=== PATIENT | male | born 1950 | race Hispanic/Latino ===

== ENCOUNTER 2017-04-30 07:43 | Outpatient (CLI) | payer MEDICARE ==
[2017-04-30] MEDS ORDERED: PROVENTIL IH ONE (09:01)
[2017-04-30 09:29] LABS: ISTAT Base Excess -5; ISTAT HCO3 18.2; ISTAT PCO2 23.3 (35-45); ISTAT PO2 78 (80-105); ISTAT SO2 97; ISTAT TCO2 19
[2017-04-30 10:14] LABS: Hematocrit 37.2 % (35.5-45.6); Hemoglobin 12.9 gm/dl (11.8-15.2); Mean Corpuscular HGB Conc 35 % (32-34); Mean Corpuscular Hemoglobin 33 pg (28-32); Mean Corpuscular Volume 95 fl (84-94); Platelet Count 252 K/mm3 (140-440); Red Blood Count 3.91 M/mm3 (3.65-5.03); Red Cell Distribution Width 14.2 % (13.2-15.2); White Blood Count 6.3 K/mm3 (4.5-11.0)
[2017-04-30 10:20] LABS: Alanine Aminotransferase 18 units/L (7-56); Albumin 3.7 g/dL (3.9-5); Albumin/Globulin Ratio 1.2 %; Alkaline Phosphatase 67 units/L (35-129); Anion Gap 22 mmol/L; BUN/Creatinine Ratio 9; Blood Urea Nitrogen 9 mg/dL (9-20); Carbon Dioxide 21 mmol/L (22-30); Chloride 102.6 mmol/L (98-107); Cholesterol 161 mg/dL (50-199); Glucose 87 mg/dL (75-100); HDL Cholesterol 48 mg/dL (40-59); LDL Cholesterol,Direct 98 mg/dL (50-130); Potassium 3.3 mmol/L (3.6-5.0); Sodium 142 mmol/L (137-145); Total Protein 6.9 g/dL (6.3-8.2)
--- NOTE | 2017-04-30 10:45 | XRay Report ---
CHEST 2 VIEWS INDICATION: COPD. COMPARISON: None similar at this institution. FINDINGS: PA and lateral chest radiographs demonstrate normal cardiomediastinal silhouette. Clear, slightly hyperexpanded lungs. Intact bones. CONCLUSION: No acute disease in the chest. Thank you for the opportunity to participate in this patient's care.
[2017-04-30 16:57] LABS: Triglycerides 85 mg/dL (2-149)
== END 2017-04-30 07:44 | disposition home or self-care (01) ==
LOC: PF 07:43
PROVIDERS: ATTEND Internal Medicine
DX: J44.9 Chronic obstructive pulmonary disease, unspecified (principal); R79.89 Other specified abnormal findings of blood chemistry
CPT/HCPCS: 36415; 71020; 80053; 80061; 82785; 82803; 84436; 84443; 85027; 94060; 94640; 94726; 94729

== ENCOUNTER 2017-05-18 09:20 | Outpatient (CLI) | payer MEDICARE ==
[2017-05-18 10:11] LABS: Anion Gap 17 mmol/L; BUN/Creatinine Ratio 14; Blood Urea Nitrogen 13 mg/dL (9-20); Calcium 8.8 mg/dL (8.4-10.2); Carbon Dioxide 24 mmol/L (22-30); Chloride 106.8 mmol/L (98-107); Glucose 97 mg/dL (75-100); Potassium 3.6 mmol/L (3.6-5.0); Sodium 144 mmol/L (137-145)
--- NOTE | 2017-05-18 11:16 | Cat Scan Report ---
CTA CHEST: HISTORY: Shortness of breath. COMPARISON: none. TECHNIQUE: Helical CT in 1.25mm intervals following IV contrast. Pulmonary embolus protocol. Sagittal and coronal reformatted images. Rotational MIP images. FINDINGS: Contrast bolus is satisfactory. No pulmonary embolus is identified. Resolution in the distal, small pulmonary arteries is limited. Thyroid gland: Normal. Tracheobronchial tree: Normal. Esophagus: Normal. Heart: Normal. Pericardium: Normal. Mediastinum: Normal. Lung Benitez: normal. Pleural Spaces: Normal. Musculoskeletal: Normal. IMPRESSION: No evidence for pulmonary embolus. Unremarkable CT chest with contrast.
== END 2017-05-18 09:21 | disposition home or self-care (01) ==
LOC: CT 09:20
PROVIDERS: ATTEND Internal Medicine
DX: R06.02 Shortness of breath (principal); R09.89 Other specified symptoms and signs involving the circulatory and respiratory systems; R05 Cough
CPT/HCPCS: 36415; 71275; 80048; Q9967

== ENCOUNTER 2017-05-21 08:09 | Outpatient (CLI) | payer MEDICARE ==
--- NOTE | 2017-05-22 11:10 | Vascular Lab Report ---
LOWER EXTREMITY VENOUS DUPLEX: REASON FOR EXAM: Edema of the lower extremities. COMMENTS ON THE RIGHT: All veins visualized are freely compressible without evidence of internal echogenicity. Flow is spontaneous and phasic throughout. COMMENTS ON THE LEFT: All veins visualized are freely compressible without evidence of internal echogenicity. Flow is spontaneous and phasic throughout. IMPRESSION: No evidence of acute or chronic deep venous thrombosis in either lower extremity.
== END 2017-05-21 08:10 | disposition home or self-care (01) ==
LOC: VAS 08:09
PROVIDERS: ATTEND Internal Medicine
DX: R60.0 Localized edema (principal); R06.02 Shortness of breath
CPT/HCPCS: 93970